=== PATIENT | male | born 1955 | race Caucasian/White ===

== ENCOUNTER → 2016-07-27 | Day surgery (SDC) | payer BC ==
[~2016-07-27] MED LIST: BUPIVACAINE 0.5% 30 ML VIAL ONE; CEFAZOLIN 1 GM VIAL ONE; DEXAMETHASONE 4 MG/ML VIAL IV ONE; FENTANYL 100 MCG/2 ML VIAL IV PRN; FENTANYL 250 MCG/5 ML VIAL IV ONE; GLYCOPYRROLATE 1 MG VIAL IM ONE; HYDROmorphone 1 MG INJECTION IV PRN; LABETALOL 20 MG/4 ML SYRINGE IV PRN; LIDOCAINE 100 MG PFS IV ONE; MEPERIDINE 25 MG/ML TUBEX IV PRN; METOCLOPRAMIDE 10 MG/2 ML VIAL IV ONE; NEOSTIGMINE 1 MG/1 ML (1:1000) INJ 10 ML MDV IM ONE; ONDANSETRON HCL 4 MG ODT TAB PO PRN; ONDANSETRON HCL 4 MG/2 ML VIAL IV ONE; ONDANSETRON HCL 4 MG/2 ML VIAL IV PRN; PROPOFOL 200 MG/20 ML VIAL IV ONE; ROCURONIUM 50 MG/5 ML VIAL IV ONE; SUCCINYLCHOLINE 20 MG/1 ML INJ 10 ML MDV IV ONE; hydrALAZINE 20 MG/ML VIAL IV PRN
[2016-07-27 06:11] LABS: LEUKOCYTES/URINE NEG (NEGATIVE); NITRITE/URINE NEG (NEGATIVE); RBC/URINE 0-2 (0-2); URINE OCCULT BLOOD NEG (NEG/TRACE); WBC/URINE 0-2 (0-2)
[2016-07-27 06:23] LABS: AUTOMATED BASOPHIL 0.8 % (0-2); AUTOMATED EOSINOPHIL 7.2 % (0-5); AUTOMATED LYMPH 32.3 % (17-44); AUTOMATED MONOCYTE 10.2 % (3-10); AUTOMATED NEUTROPHIL 49.5 % (45-76); MPV 8.6 fL (7.4-10.4)
[2016-07-27 06:48] LABS: BLOOD UREA NITROGEN 15 MG/DL (9-20); CALCIUM 8.8 MG/DL (8.4-10.2); CALCULATED OSMOLALITY 270 MOs/Kg (270-290); CHLORIDE 105 mEq/L (98-107); GLUCOSE 101 MG/DL (70-99); SODIUM LEVEL 140 mEq/L (137-146); TOTAL PROTEIN 7.1 G/DL (6.3-8.2)
--- NOTE | 2016-07-27 06:58 | HIM.ANES ---
Anesthesia Evaluation & Plan Diagnoses: UNIL INGUINAL HERNIA, W/O OBST OR GANGR, NOT SPCF RECUR (07/27/16) Consented Procedure: RIGHT INGUINAL HERNIA REPAIR - Focused Review of Systems Cardiac History: No: Hx Cardiac Disorders HEENT: Yes: Hx Vision Problem (PRESCRIPTION GLASSES), Other HEENT Problems Hx Other HEENT Surgery: T&A AGE 5, SEPTOPLASTY AGE 14 Hx Other HEENT Problems: ALLERGIC RHINNITIS Respiratory: Yes: Hx Snoring (OCCASIONAL) Gastrointestinal: Yes: Hx Gastrointestinal Disorders, Hx Colonoscopy (2012 NORMAL) Neurological/Musculoskeletal: No: Hx Neurological Disorders Psychological: No Hx Mental/Emotional Disorders Blood/Autoimmune: No: Hx AIDS, Hx Hepatitis (type) Smoking Status: Former smoker Other Surgical History: T&A AGE 5, SEPTOPLASTY AGE 14 SKIN LESION REMOVAL 2014 - Focused Physical Exam NPO since: 07/26/16 2200 Mallampati: Class I Thyromental Distance: Greater than 3 Neck: Full Range of Motion Dental: Other (front cap has had since 8yo) Cardiovascular/Chest: Normal (RRR no mumurs or rubs.) Respiratory: Lungs clear. negative: Rhonchi, Wheezing Any problems with anesthesia, including nausea and vomiting?: No Any relatives with a history of Malignant Hyperthermia?: No Does patient have a history of Malignant Hyperthermia?: No Beta Octaviano given (if appropriate): N/A Does the patient have a history of Motion Sickness-: No Other: CBC/BMP/Other 07/27/16 06:15 07/27/16 06:15 Allergies Allergy/AdvReac Type Severity Reaction Status Date / Time No Known Allergies Allergy Verified 07/27/16 06:07 Home Medications Medication Instructions Recorded Last Taken Type Loratadine [Claritin] 10 mg PO DAILY 07/26/16 07/26/16 07:30 History Height and Weight Patient's height 5 ft 9 in Patient's weight 83.915 kg Vital Signs Temperature 97.8 F 07/27/16 05:56 Pulse Rate 105 07/27/16 05:56 Respiratory Rate 18 07/27/16 05:56 Blood Pressure 159/87 07/27/16 05:56 Pulse Oxygen Saturation 99 07/27/16 05:56 METS - Level of Activity: Climbing stairs(1 flight),walking level ground, running short distance - Anesthetic Plan Anesthesia Type: General ASA Class: 2 -: I have examined this patient and reviewed the medical record. The patient has been assessed prior to anesthesia. Risks and benefits of anesthesia and anesthetic technique options have been discussed and all questions answered. The patient accepts the risk and desires me to proceed with the planned anesthetic.
--- NOTE | 2016-07-27 08:01 | HIMOPRPT ---
DATE OF PROCEDURE: 07/27/16 PREOPERATIVE DIAGNOSIS: Right inguinal hernia. POSTOPERATIVE DIAGNOSIS: Direct right inguinal hernia. PROCEDURE: Right inguinal hernia repair with PHSE mesh SURGEON: Julio Cesar Guthrie M.D. ANESTHESIA: General. COMPLICATIONS: None. SPECIMEN: None PACKINGS AND DRAINS: None. ESTIMATED BLOOD LOSS: 3 cc OPERATIVE FINDINGS AND TECHNIQUE: With consent, the patient was brought to the operative suite, placed in supine position. Following general anesthesia, the right inguinal area was prepped and draped in usual fashion. An oblique incision made in the [left/right] inguinal area. Dissection was carried through the skin to the underlying subcutaneous tissue. Scarpas fascia was incised, and ultimately the external oblique aponeurosis was identified. Incision was made in line of fibers of external oblique aponeurosis and transection was taken through the external ring. There was no indirect inguinal hernia sac. The floor of the inguinal canal was completely disrupted. This was consistent with a direct inguinal hernia. The hernia defect came out medial adhesed to the inferior epigastric vessels. During the course of dissection a decision was made to ligate the ilioinguinal nerve. The direct hernia sac was scored. Preperitoneal dissection was then undertaken. A PHSE mesh was chosen for the repair. The underlay deployed appropriately. The overlay was cut to allow keyhole passage of the spermatic cord and surrounding structures. The overlay was secured circumferentially using 0 Vicryl suture in interrupted fashion. Repair was secured. Irrigation was achieved and hemostasis was achieved. Deep, subcutaneous, and subcuticular tissues were injected with 0.5% Marcaine. External oblique aponeurosis was reapproximated 3 0 Vicryl suture. Scarpas fascia was closed using 2-0 plain. Skin approximation was accomplished using 4- 0 Monocryl in subcuticular fashion. Dermabond, 2x2 gauze, and Tegaderm dressings were applied to the wound. The patient tolerated the procedure well with findings as described. At termination of procedure, all instrument, sponge , and needle counts were correct.
[2016-07-27 08:39] VITALS: TEMP 97.9
[2016-07-27 09:24] VITALS: PULSE 71
[2016-07-27 13:51] VITALS: BP 123/79
--- NOTE | 2016-07-27 13:51 | SC.ANESPOS ---
Post-Anesthesia Note LOC: Fully Awake Post-Anesthesia Assessment: Awake, Returned to Baseline, Hemodynamically Stable , Pain Control Adequate Phase I & II Recovery Complete: Yes Apparent Anesthesia Complication: No : N PACU Discharge Time: 08:45 - Vital Signs Blood Pressure: 123/79 Pulse: 71 Resp Rate: 16 O2 Sat: 96 Temp: 97.9 F - Comments Anesthesia Discharge Time Report Time 08:45
== END ==
LOC: SDC 05:45
PROVIDERS: ATTEND Surgery Vascular Surgery
PROC: 0YU50JZ Supplement Right Inguinal Region with Synthetic Substitute, Open Approach (ICD-10-PCS; principal; 2016-07-27 07:15)
DX: K40.90 Unilateral inguinal hernia, without obstruction or gangrene, not specified as recurrent (principal); E78.2 Mixed hyperlipidemia; Z87.891 Personal history of nicotine dependence; Z79.899 Other long term (current) drug therapy
CPT/HCPCS: 49505; 80053; 81001; 85025; C1781; J0330; J0690; J1100; J2001; J2405; J2710; J2765; J3010; J3490